=== PATIENT | female | born 1985 | race Caucasian/White ===

== ENCOUNTER 2022-01-06 21:22 | Inpatient (IN) | payer BC, SELFPAY ==
--- NOTE | ~2022-01-06 | CT_ITS ---
EXAMINATION: CT ABDOMEN AND PELVIS WITH CONTRAST CLINICAL INFORMATION: Abdominal pain COMPARISON: None TECHNIQUE: Multidetector volumetric images were obtained from the superior aspect of the liver through the pubic symphysis following administration 75 mL of Omnipaque 300 intravenous contrast. Sagittal and coronal reformatted images were obtained on the technologist's workstation. Oral contrast: No This CT examination was performed using dose optimization techniques as appropriate, variously including the following: *Automated exposure control *Adjustment of mA and/or kV according to patient size (this includes techniques or standardized protocols for targeted exams where dose is matched to indication/reason for exam; i.e. extremities or head) *Use of iterative reconstruction technique DLP: 626 mGy-cm FINDINGS: LUNG BASES: The visualized lung bases are unremarkable. LIVER, GALLBLADDER, AND BILIARY TREE: The liver is normal in size, shape and contour. Mild hepatic steatosis. No focal hepatic lesion or biliary ductal dilatation is present. Gallbladder unremarkable. PANCREAS: Marked peripancreatic fat stranding present with coalescent fluid extending into the lesser sac, left pararenal space, and to lesser extent the right anterior pararenal space, inferiorly through the retroperitoneum. There is interstitial edema evident within the pancreatic interstices / fatty interdigitations, however the pancreatic parenchyma itself is homogeneous in attenuation. No evidence of pancreatic necrosis at this time, or acute necrotic collection. SPLEEN: Unremarkable. ADRENAL GLANDS: Unremarkable. KIDNEYS AND URETERS: The kidneys are normal in size, shape, and attenuation. No hydronephrosis, hydroureter, or calculi seen. No perinephric stranding. BLADDER: Unremarkable. GASTROINTESTINAL TRACT: Small sliding-type hiatal hernia. The small and large bowel are unremarkable. The appendix is unremarkable. ABDOMINAL WALL: No significant hernia is appreciated. LYMPH NODES: Normal. VASCULAR: Aorta is mildly atherosclerotic but normal caliber. Patent vascular structures. PELVIC VISCERA: IUD present within the uterus. Ovaries unremarkable. OSSEOUS STRUCTURES: No acute or suspicious osseous abnormalities. CT/CT abdomen pelvis w con IMPRESSION: * Acute interstitial edematous pancreatitis with peripancreatic fluid collections as described. * No evidence of pancreatic necrosis or acute necrotic collection at this time, however such imaging findings take at least 72 hours to develop after the onset of symptoms. * Hepatic steatosis.
[2022-01-06] MEDS: Ondansetron ODT 4 MG TAB.RAPDIS SUBLINGUAL (21:52)
[2022-01-06 21:53] VITALS: BP 149/86; PULSE 61; RESP 18; TEMP 36.5; O2SAT 99; BMI 25.8
[2022-01-06 21:56] LABS: Basophils Percent Auto 0.2 % (0-2); Hemoglobin 15.8 g/dl (12.0-16.0); Imm Gran Abs Auto 0.06 X10*3/uL (0.00-0.03); Imm Gran Pct Auto 0.4 % (0.0-0.4); Lymphocytes Absolute Auto 0.6 X10*3/uL (1.2-4.9); MANUAL DIFF FLAG SCAN; Mean Corpuscular HGB Conc 34.3 g/dl (31.0-35.0); Mean Corpuscular Hemoglobin 31.9 pg (27.0-33.0); Mean Corpuscular Volume 92.7 fL (80.0-98.0); Monocytes Absolute Auto 0.6 X10*3/uL (0.1-1.2); Monocytes Percent Auto 3.7 % (2-11); Neutrophils Absolute Auto 14.4 x10*3/uL (2.0-8.3); Neutrophils Percent Auto 91.7 % (45-73); Platelet Count 189 X10*3/uL (160-400); Red Blood Count 4.96 X10*6/uL (4.20-5.50); Red Cell Distribution Width 11.9 % (11.0-16.0); SCAN SMEAR FLAG 1; White Blood Count 15.6 X10*3/uL (4.8-10.8)
[2022-01-06 22:11] LABS: Alanine Aminotransferase 78 U/L (0-31); Albumin Level 4.6 g/dL (3.5-5.0); Alkaline Phosphatase 65 U/L (39-117); Anion Gap 19 (12-20); Aspartate Amino Transferase 96 U/L (5-31); Bilirubin Total 1.5 mg/dL (0.0-1.0); Blood Urea Nitrogen 13 mg/dL (9-16); Calcium 9.6 mg/dL (8.4-10.2); Carbon Dioxide 18 mmol/L (22-29); Chloride 104 mmol/L (96-108); Creatinine Clr Calc Pharmacy 94.9; Estimated Glomerular Filt Rate > 60; Glucose Random 157 mg/dL (60-115); Potassium 4.3 mmol/L (3.3-5.1); Sodium 137 mmol/L (135-145)
[2022-01-06 22:14] LABS: SLIDE REVIEW VERIFIED
--- NOTE | 2022-01-06 23:30 | ED_ITS ---
HPI - Abdominal Pain General Chief Complaint: Abdominal Pain Stated Complaint: Stomach Pain Time Seen by Provider: 01/06/22 23:18 Source: patient Mode of arrival: ambulatory Limitations: no limitations History of Present Illness HPI narrative: 36-year-old female presents with several days of severe abdominal pain. States the abdominal pain starts at the umbilical area and shoots out through her back. She has not had any prior abdominal surgeries. States that she has been drinking more alcohol than normal. She is in the [employer]. MD elicited complaint: abdominal pain Pertinent past history: constipation Onset (ago): day(s) (3) Pain Consistency: constant Location: diffuse Severity: severe Pain scale (0-10): 10 Quality: stabbing and aching Radiation: back Migration to: no migration Exacerbating factors: eating and movement Relieving factors: nothing Associated symptoms: nausea, chills and constipation Treatments prior to arrival: NSAIDs Related Data Allergies Allergy/AdvReac Type Severity Reaction Status Date / Time No Known Allergies Allergy Verified 01/06/22 23:25 Review of Systems Review of Systems Constitutional: No Weight loss, No Fever, positive Chills, No Night Sweats, No Fatigue, No Malaise ENT/Mouth: No Hearing loss, No Ear Pain, No Nasal Congestion, No Sinus Pain, No Hoarseness, No sore throat, No Rhinorrhea, No Swallowing Difficulty Eyes: No Eye Pain, No Swelling, No Redness, No Foreign Body, No Discharge, No Vision Changes Cardiovascular: No Chest Pain, No SOB, No Dyspnea on Exertion, No Orthopnea, No Edema, No Palpitations Respiratory: No Cough, No Sputum, No Wheezing, No Smoke Exposure, No Dyspnea Gastrointestinal: Positive Nausea, no Vomiting, positive Diarrhea, positive abdominal Pain, No Hematochezia, No Melena Genitourinary: no irregular bleeding, No Dysuria, No Urinary Frequency, No H ematuria, No Urinary Incontinence, No Urgency, No Flank Pain, No Urinary Flow Changes, No Hesitancy Musculoskeletal: No joint pain, No Myalgias, No Joint Swelling Skin: No Skin Lesions, No rash Neuro: No Weakness, No Numbness, No Paresthesias, No Loss of Consciousness, No Dizziness, No Headache Psych: No Anxiety/Panic, No Depression, No SI/HI/AH/VH, No Social Issues Heme/Lymph: No Bruising, No Bleeding,No Lymphadenopathy Endocrine: No Polyuria, No Polydipsia, No Temperature Intolerance Yes all other systems are reviewed and are negative [facility] Past Medical History Attestation statement: The following information was validated with the patient. Source: old records reviewed Social History Social History Alcohol intake: current Alcohol intake frequency: 0-2 drinks per day Alcohol type: wine Patient Tobacco Use Status: Current everyday Tobacco user Smoked in Last 30 Days: Yes Use of substances other than those prescribed or required for medical reasons: No Advance Directives: No Advance Directives Information Provided: No Patient : No Physical Exam ED Vital Signs: Vital Signs - 24 hr 01/06/22 21:53 01/06/22 23:49 01/06/22 23:55 Temperature 97.7 F 98.6 F Pulse Rate 61 61 Respiratory Rate 18 20 20 Blood Pressure 149/86 H 165/67 H Pulse Oximetry 99 98 Oxygen Delivery Method Room Air Room Air 01/07/22 00:16 01/07/22 00:32 01/07/22 00:52 Temperature Pulse Rate 59 Respiratory Rate 18 14 Blood Pressure 145/91 H 155/91 H Pulse Oximetry Oxygen Delivery Method BMI result Body Mass Index 25.8 Appearance: Alert. Oriented X3. Moderate distress. Eyes: Pupils equal, round and reactive to light. Sclera nonicteric. ENT: Pharynx normal. Dry mucous membranes. Neck: Normal inspection. Neck supple. CVS: Normal heart rate and rhythm. Pulses normal. Respiratory: No respiratory distress. Breath sounds normal. Abdomen: Soft and positive McBurney, left upper quadrant abdominal pain. Distended. No rigidity. Skin: Skin warm and dry. Normal skin color. Normal skin turgor. Extremities: No lower extremity edema. Moves all extremities does resistance. Neuro: No motor deficit. No sensory deficit. Cranial nerves 2-12 intact. Course Course Course Narrative: 36-year-old female presents with 3 days of severe shooting abdominal pain, distention, inability to have a bowel movement. States that she cannot sit still, has had chills. She does report eating abnormally fatty foods and drinking more alcohol than normal. She is in the [employer] and was relocated to [place] from [place]. White count is elevated at 15.6. Patient does not report any prior abdominal surgeries. Abdominal exam diffusely tender, positive McBurney, left upper quadrant abdominal tenderness. Will order CT scan of abdomen pelvis with contrast. This [employer] started 20 gauge ID to right forearm. No complications. First attempt. Patient tolerated procedure well. 00:12 lipase elevated at 5000. Added on for LDH. Order for Dilaudid 1 mg. 2 L of fluid infusing. Order for 2nd IV start. 01:16 patient states to have 5/10 pain, order for 1 mg of Dilaudid IV and 3 L of normal saline. Discussion with hospitalist, plan of care is to admit for acute pancreatitis. CT scan is still pending. If CT scan indicates acute abdomen, surgery will be involved. 01:35 CT scan negative for acute abdomen requiring surgical intervention. Does indicate pancreatitis with stranding and free fluid. Hospitalist updated. Consultations Consultation #1: estuardo Time: 01:17 Consultation #2: Estuardo Time: 01:36 MDM - Abdominal Pain Differential Diagnosis Differential diagnosis: Likely abdominal pain, acute appendicitis, calculus of kidney, constipation, diverticulitis, pancreatitis, peptic ulcer disease and small bowel obstruction Medical Records Attestation: I reviewed the patient's medical records. Lab Data Attestation: I reviewed the patient's lab results. Result diagrams: 01/06/22 21:50 01/06/22 21:50 Labs: Lab Results 01/06/22 01/06/22 01/06/22 Range/Units 21:50 21:50 21:50 WBC 15.6 H (4.8-10.8) X10*3/uL RBC 4.96 (4.20-5.50) X10*6/uL Hgb 15.8 (12.0-16.0) g/dl Hct 46.0 (37.0-47.0) % MCV 92.7 (80.0-98.0) fL MCH 31.9 (27.0-33.0) pg MCHC 34.3 (31.0-35.0) g/dl RDW 11.9 (11.0-16.0) % Plt Count 189 (160-400) X10*3/uL MPV 9.0 L (9.4-12.3) fL Immature Gran % (Auto) 0.4 (0.0-0.4) % Neut % (Auto) 91.7 H (45-73) % Lymph % (Auto) 4.0 L (20-40) % [place] % (Auto) 3.7 (2-11) % Eos % (Auto) 0.0 (0-4) % Baso % (Auto) 0.2 (0-2) % Lymph # (Auto) 0.6 L (1.2-4.9) X10*3/uL [place] # (Auto) 0.6 (0.1-1.2) X10*3/uL Eos # (Auto) 0.0 (0.0-0.4) X10*3/uL Baso # (Auto) 0.0 (0.0-0.2) X10*3/uL Abs Immat Gran (auto) 0.06 H (0.00-0.03) X10*3/uL Absolute Neuts (auto) 14.4 H (2.0-8.3) x10*3/uL Absolute Nucleated RBC 0.000 (0.0-0.012) X10*3/uL Nucleated RBC % (auto) 0.0 (0.0-0.2) /100WBC Smear Tech's Comments VERIFIED Sodium 137 (135-145) mmol/L Potassium 4.3 (3.3-5.1) mmol/L Chloride 104 (96-108) mmol/L Carbon Dioxide 18 L (22-29) mmol/L Anion Gap 19 (12-20) BUN 13 (9-16) mg/dL Creatinine 0.84 (0.5-1.4) mg/dL Estim Creat Clear Calc 94.9 Estimated GFR > 60 Random Glucose 157 H (60-115) mg/dL Calcium 9.6 (8.4-10.2) mg/dL Total Bilirubin 1.5 H (0.0-1.0) mg/dL AST 96 H (5-31) U/L ALT 78 H (0-31) U/L Alkaline Phosphatase 65 (39-117) U/L Lactate Dehydrogenase 212 (122-220) U/L Troponin I High Sens < 3.5 (<3.5-17.0) ng/L Total Protein 8.0 (6.5-8.0) g/dL Albumin 4.6 (3.5-5.0) g/dL Lipase 5088 H (8-78) U/L Beta HCG, Quant < 2 mIU/mL Imaging Data CT abdomen pelvis with contrast: Attestation: I personally reviewed and interpreted this imaging study as follows: Radiologist's impression: FINDINGS: LUNG BASES: The visualized lung bases are unremarkable.? LIVER, GALLBLADDER, AND BILIARY TREE: The liver is normal in size, shape and contour. Mild hepatic steatosis. No focal hepatic lesion or biliary ductal dilatation is present. Gallbladder unremarkable.? PANCREAS: Marked peripancreatic fat stranding present with coalescent fluid extending into the lesser sac, left pararenal space, and to lesser extent the right anterior pararenal space, inferiorly through the retroperitoneum. There is interstitial edema evident within the pancreatic interstices / fatty interdigitations, however the pancreatic parenchyma itself is homogeneous in attenuation. No evidence of pancreatic necrosis at this time, or acute necrotic collection. SPLEEN: Unremarkable.? ADRENAL GLANDS: Unremarkable.? KIDNEYS AND URETERS: The kidneys are normal in size, shape, and attenuation. No hydronephrosis, hydroureter, or calculi seen. No perinephric stranding. ? BLADDER: Unremarkable.? GASTROINTESTINAL TRACT: Small sliding-type hiatal hernia. The small and large bowel are unremarkable. The appendix is unremarkable.? ABDOMINAL WALL: No significant hernia is appreciated.? LYMPH NODES: Normal. VASCULAR: Aorta is mildly atherosclerotic but normal caliber. Patent vascular structures. PELVIC VISCERA: IUD present within the uterus. Ovaries unremarkable.? OSSEOUS STRUCTURES: No acute or suspicious osseous abnormalities.? CT/CT abdomen pelvis w con IMPRESSION: *? Acute interstitial edematous pancreatitis with peripancreatic fluid collections as described. *? No evidence of pancreatic necrosis or acute necrotic collection at this time, however such imaging findings take at least 72 hours to develop after the onset of symptoms.? *? Hepatic steatosis. ECG Data Attestation: I personally reviewed and interpreted this ECG as follows: ECG interpretation date: 01/07/22 ECG interpretation time: 00:08 Prior ECG tracings: not available for review Interpretation: Ventricular rate 66, NY 106, QRS 88, QT 430, QTC 450, sinus rhythm with short [place]. No indication of ST elevation or depression. No indication of ischemia. Critical Care Time Critical Care Time Critical Care Time: Yes Total Critical Care Time: 45 Attestation: I have personally provided critical care time exclusive of time spent on separately billable procedures. Time includes review of laboratory data, radiology results, discussion with consultants, and monitoring for potential decompensation. Interventions were performed as documented.
[2022-01-06 23:49] VITALS: BP 165/67; PULSE 61; RESP 20; TEMP 37; O2SAT 98
[2022-01-06] MEDS: 0.9 % Sodium Chloride 1,000 ML 999 ML IVCONT (23:52)
[2022-01-06 23:55] VITALS: RESP 20
[2022-01-06] MEDS: Morphine Sulfate 4 MG/ML CARTRIDGE IVPUSH (23:55)
[2022-01-06 23:56] LABS: Lipase 5088 U/L (8-78)
[2022-01-07] VITALS (18 sets, daily range): BP systolic 136–170; BP diastolic 60–103; PULSE 59–84; RESP 14–20; TEMP 36.4–37.1; O2SAT 95–96
[2022-01-07] MEDS: ondansetron HCL 4 MG/2 ML VIAL IVPUSH
--- NOTE | 2022-01-07 00:07 | ECG_ITS ---
Test Reason : ABD PAIN Blood Pressure : / mmHG Vent. Rate : 066 BPM Atrial Rate : 066 BPM P-R Int : 106 ms QRS Dur : 088 ms QT Int : 430 ms P-R-T Axes : 042 081 070 degrees QTc Int : 450 ms Sinus rhythm with short OR Otherwise normal ECG No significant changes when compared with the previous EKG of 14 dec 2008 Referred By: Daysi Negron Electronically Signed By:QUYEN ONEIL
[2022-01-07 00:09] LABS: HCG Quantitative < 2 mIU/mL
[2022-01-07] MEDS: HYDROmorphone HCl 1 MG/ML SYRINGE IVPUSH (00:16)
[2022-01-07] MEDS: 0.9 % Sodium Chloride 1,000 ML 999 ML IVCONT ×2 (00:21→02:23)
--- NOTE | 2022-01-07 00:31 | PC.NURSE ---
20g IV inserted in Left AC. Fluids running. Pt tolerated well.
[2022-01-07 00:41] LABS: Lactate Dehydrogenase 212 U/L (122-220)
[2022-01-07 00:50] LABS: Troponin-I High Sensitivity < 3.5 ng/L (<3.5-17.0)
[2022-01-07] MEDS: HYDROmorphone HCl 0.5 MG/0.5 ML SYRINGE IVPUSH ×4 (02:18→18:36)
--- NOTE | 2022-01-07 04:29 | PM.IMHP ---
History of Present Illness Date of Service: 01/07/22 Chief Complaint: Abdominal pain 36-year-old female with a past medical history of GERD, alcohol abuse presented to the hospital with a chief complaint of abdominal pain. Patient reports that for the past 1 day she has been having abdominal pain associated nausea and vomiting. Had multiple episodes of projectile vomiting. Denies any blood in the vomitus. Patient reports that over the past few days she has been drinking alcohol; mentions that she is drinking of alcohol as she was on vacation. And usually does not drink much of alcohol. Denies any other illicit drug use. Denies any chest pain or palpitations. Denies any diarrhea. Reports her abdominal pain is 10/10 in intensity, located in the epigastrium; Review of all other systems is negative except mentioned above ER course: Per ER team patient has diffuse abdominal tenderness; CT scan showed acute interstitial pancreatitis. Lipase was elevated to 5000; also noted mild transaminitis. Given pain medications, IV fluids. Admitted to the hospital for further management. PMFSH Pertinent family history: Denies any significant family history; Mentions her sister had pancreatitis Social History Alcohol intake: current Alcohol intake frequency: 0-2 drinks per day Alcohol type: wine Patient Tobacco Use Status: Current everyday Tobacco user Smoked in Last 30 Days: Yes Use of substances other than those prescribed or required for medical reasons: No Advance Directives: No Advance Directives Information Provided: No Patient : No Meds Allergies Allergy/AdvReac Type Severity Reaction Status Date / Time No Known Allergies Allergy Verified 01/06/22 23:25 Active Medications: Current Medications Enoxaparin Sodium (Enoxaparin Sodium 40 Mg/0.4 Ml Syringe) 40 mg SUBCUT Q24H DONNY Famotidine (Famotidine/Pf 20 Mg/2 Ml Vial) 20 mg IVPUSH BID DONNY Folic Acid (Folic Acid 1 Mg Tablet) 1 mg PO DAILY DONNY Stop: 01/10/22 08:59 Hydromorphone HCl (Hydromorphone Hcl 1 Mg/Ml Syringe) 0.5 mg IVPUSH Q4H PRN; Protocol PRN Reason: Pain, Severe (Pain Scale 7-10) Dextrose/Sodium Chloride (D5ns) 1,000 mls @ 100 mls/hr IVCONT .Q10H DONNY Lorazepam (Lorazepam 1 Mg Tablet) 1 mg PO Q4H PRN PRN Reason: Breakthrough alcohol withdrawa Stop: 01/11/22 04:25 Melatonin (Melatonin 3 Mg Tablet) 6 mg PO BEDTIME PRN PRN Reason: Insomnia Multivitamins/Vitamin C (Multivitamin Tablet) 1 tab PO DAILY DONNY Stop: 01/10/22 08:59 Pharmacy Consult (Consult Rx Perform Med Rec) 1 each MISCELLANE ONCE STA Stop: 01/07/22 00:26 Senna (Sennosides 8.6 Mg Tablet) 17.2 mg PO BEDTIME PRN PRN Reason: Constipation Sodium Chloride (0.9 % Sodium Chloride Flush 3 Ml Syringe) 3 ml IVFLUSH QSHIFT DONNY Thiamine HCl (Thiamine Hcl 100 Mg Tablet) 100 mg PO DAILY DONNY Stop: 01/10/22 08:59 Physical Exam Vital Signs and Narrative: Vital Signs: Last Vital Signs Temp 98.6 F 01/06/22 23:49 Pulse 70 01/07/22 04:06 Resp 18 01/07/22 04:06 BP 163/88 H 01/07/22 04:06 Pulse Ox 96 01/07/22 04:06 O2 Del Method 01/07/22 04:06 BMI result Body Mass Index 25.8 Gen: Appears be in no acute distress HEENT: NCAT, Moist mucosa. Pulmonary: Vesicular breath sounds, fair air entry CVS: Normal S1-S2 Abdomen: BS+, Soft, tender in the epigastrium radiating down the umbilicus; no guarding no rigidity. Extremities: Warm well perfused Neuro: Alert and awake. Results Labs CBC and Chem 7: 01/06/22 21:50 01/06/22 21:50 Labs: Laboratory Results - last 24 hr 01/06/22 01/06/22 01/06/22 21:50 21:50 21:50 MCV 92.7 MCH 31.9 MCHC 34.3 RDW 11.9 Plt Count 189 MPV 9.0 L Immature Gran % (Auto) 0.4 Neut % (Auto) 91.7 H Lymph % (Auto) 4.0 L [place] % (Auto) 3.7 Eos % (Auto) 0.0 Baso % (Auto) 0.2 Lymph # (Auto) 0.6 L [place] # (Auto) 0.6 Eos # (Auto) 0.0 Baso # (Auto) 0.0 Abs Immat Gran (auto) 0.06 H Absolute Neuts (auto) 14.4 H Absolute Nucleated RBC 0.000 Nucleated RBC % (auto) 0.0 Smear Tech's Comments VERIFIED Anion Gap 19 Estim Creat Clear Calc 94.9 Estimated GFR > 60 Random Glucose 157 H Calcium 9.6 Total Bilirubin 1.5 H AST 96 H ALT 78 H Alkaline Phosphatase 65 Lactate Dehydrogenase 212 Troponin I High Sens < 3.5 Total Protein 8.0 Albumin 4.6 Lipase 5088 H Beta HCG, Quant < 2 Imaging Radiologist's Impressions: Impressions Abdomen/Pelvis CT 01/07/22 00:45 IMPRESSION: * Acute interstitial edematous pancreatitis with peripancreatic fluid collections as described. * No evidence of pancreatic necrosis or acute necrotic collection at this time, however such imaging findings take at least 72 hours to develop after the onset of symptoms. * Hepatic steatosis. Assessment and Plan (1) Pancreatitis: Status: Acute Plan 36-year-old female with a past medical history of GERD, alcohol abuse presented to the hospital with a chief complaint of abdominal pain./nausea/vomiting Noted to have acute pancreatitis. Admitted for further management. Acute pancreatitis: CT scan showed ?Acute interstitial edematous pancreatitis with peripancreatic fluid collections. No evidence of necrosis. NPO IV fluids Pain control General surgery consult and gastroenterology consult Alcohol abuse: Patient denies being a heavy drinker. Currently drinking because she has an medication. Monitor on CIWA. Hypertension: Currently blood pressure is elevated likely in the setting of pain. Will control pain. Monitor vitals. DVT prophylaxis: Lovenox Code status: Full code Quality Stroke Does the patient have a stroke diagnosis?: No VTE Prior VTE?: No VTE Risk Level:: Medical - moderate - high VTE Device Contraindication: Treatment Not Indicated VTE Drug Contraindication: N/A - Med Ordered
[2022-01-07] MEDS: Dextrose 5 % and 0.9 % NaCl 1,000 ML 100 ML IVCONT (05:02)
[2022-01-07 05:15] LABS: Appearance Urine CLEAR; Color Urine YELLOW; Glucose Urine UA NEG (NEG); Leukocyte Esterase Urine NEG (NEG); Nitrite Urine NEG (NEG); UACC Culture Trigger NO; Urine Blood TRACE (NEG); Urine Ketones 15 MG/DL (NEG); Urine Protein NEG (NEG-TRACE)
[2022-01-07 05:22] LABS: WBC Urine 0-2 /HPF (0-4)
[2022-01-07 05:23] LABS: Bacteria Urine 1+ /LPF; Mucus Urine 1+ /LPF; RBC Urine 0-2 /HPF (0); Squamous Epithelial Cell Urine 1+ /LPF
[2022-01-07 05:31] LABS: IDNOW Serial# 08D9AD1C
[2022-01-07 05:32] LABS: COVID-19 Test Negative (Negative)
[2022-01-07] MEDS: Enoxaparin Sodium 40 MG/0.4 ML SYRINGE SUBCUT (07:03)
[2022-01-07 07:04] LABS: Basophils Percent Auto 0.1 % (0-2); Hematocrit 42.8 % (37.0-47.0); Hemoglobin 14.3 g/dl (12.0-16.0); Imm Gran Abs Auto 0.07 X10*3/uL (0.00-0.03); Imm Gran Pct Auto 0.5 % (0.0-0.4); Lymphocytes Absolute Auto 0.6 X10*3/uL (1.2-4.9); Lymphocytes Percent Auto 4.1 % (20-40); MANUAL DIFF FLAG SCAN; Mean Corpuscular HGB Conc 33.4 g/dl (31.0-35.0); Mean Corpuscular Hemoglobin 31.5 pg (27.0-33.0); Mean Corpuscular Volume 94.3 fL (80.0-98.0); Mean Platelet Volume 9.3 fL (9.4-12.3); Monocytes Absolute Auto 0.7 X10*3/uL (0.1-1.2); Neutrophils Absolute Auto 12.7 x10*3/uL (2.0-8.3); Neutrophils Percent Auto 90.3 % (45-73); Platelet Count 162 X10*3/uL (160-400); Red Blood Count 4.54 X10*6/uL (4.20-5.50); Red Cell Distribution Width 12.2 % (11.0-16.0); SCAN SMEAR FLAG 1; White Blood Count 14.1 X10*3/uL (4.8-10.8)
[2022-01-07 07:28] LABS: Alanine Aminotransferase 52 U/L (0-31); Albumin Level 3.9 g/dL (3.5-5.0); Alkaline Phosphatase 56 U/L (39-117); Anion Gap 13 (12-20); Aspartate Amino Transferase 57 U/L (5-31); Bilirubin Direct 0.6 mg/dL (0.0-0.5); Bilirubin Total 1.6 mg/dL (0.0-1.0); Blood Urea Nitrogen 11 mg/dL (9-16); Carbon Dioxide 19 mmol/L (22-29); Chloride 109 mmol/L (96-108); Creatinine Clr Calc Pharmacy 106.3; Estimated Glomerular Filt Rate > 60; Glucose Random 150 mg/dL (60-115); Sodium 137 mmol/L (135-145); Total Protein 6.9 g/dL (6.5-8.0)
[2022-01-07 07:57] LABS: SLIDE REVIEW VERIFIED
[2022-01-07 08:04] LABS: Lipase 3444 U/L (8-78)
--- NOTE | 2022-01-07 08:05 | PHA.MEDREC ---
Pharmacy Consult ? Medication Reconciliation Pharmacy has completed the medication reconciliation.
--- NOTE | 2022-01-07 08:11 | P.CNGI_ITS ---
History of Present Illness Data of Consult Service Date: 01/07/22 Requesting physician: Greg Marte Primary Care Provider: Unknown Physician HPI Reason for consult: pancreatitis 36-year-old female with a past medical history of GERD, alcohol abuse who I am seeing for assessment for pancreatitis. Presents with one d hx of severe epigastric pain 10/10 in severity, radiating into the back with nausea and non bloody emesis. Apin worse with movement, no releiving factor. Never had this pain before. pain reduced with pain medication, managing to sip fluids, has no appetite. Denies any chest pain or palpitations.? Denies any diarrhea now, but had some at onset of pain, no constipation, melena or rectal bleeding SHe does drink one bottle of wine every night for years, last 1-2 weeks she has been drinking 2 bottles as she is vacationing in [place] (lives in [place] with sister and niece) Labs: Lipase was elevated to 5000; mild transaminitis. imaging: CT scan showed acute interstitial pancreatitis.? Review of Systems Review of Systems: Constitutional: No Weight loss, No Fever, positive Chills, No Night Sweats, No Fatigue, No Malaise ENT/Mouth: No Hearing loss, No Ear Pain, No Nasal Congestion, No Sinus Pain, No Hoarseness, No sore throat, No Rhinorrhea, No Swallowing Difficulty Eyes: No Eye Pain, No Swelling, No Redness, No Foreign Body, No Discharge, No Vision Changes Cardiovascular: No Chest Pain, No SOB, No Dyspnea on Exertion, No Orthopnea, No Edema, No Palpitations Respiratory: No Cough, No Sputum, No Wheezing, No Smoke Exposure, No Dyspnea Gastrointestinal: Positive Nausea, no Vomiting, positive Diarrhea, positive abdominal Pain, No Hematochezia, No Melena Genitourinary: no irregular bleeding, No Dysuria, No Urinary Frequency, No Hematuria, No Urinary Incontinence, No Urgency, No Flank Pain, No Urinary Flow Changes, No Hesitancy Musculoskeletal: No joint pain, No Myalgias, No Joint Swelling Skin: No Skin Lesions, No rash Neuro: No Weakness, No Numbness, No Paresthesias, No Loss of Consciousness, No Dizziness, No Headache Psych: No Anxiety/Panic, No Depression, No SI/HI/AH/VH, No Social Issues Heme/Lymph: No Bruising, No Bleeding,No Lymphadenopathy Endocrine: No Polyuria, No Polydipsia, No Temperature Intolerance [facility] Past Medical History Medical History (Updated 01/07/22 @ 14:34 by Nadia Neal MD) Alcohol dependence Family History Pertinent family history: Denies any significant family history; Mentions her sister had pancreatitis Social History Social History (Updated 01/07/22 @ 10:49 by Olu Luong MD) Alcohol intake: current Alcohol intake frequency: other Alcohol type: wine Patient Tobacco Use Status: Current everyday Tobacco user Smoked in Last 30 Days: Yes Use of substances other than those prescribed or required for medical reasons: No Advance Directives: No Advance Directives Information Provided: No Patient : No service: Yes Current occupational status: employed Meds Allergies Allergy/AdvReac Type Severity Reaction Status Date / Time No Known Allergies Allergy Verified 01/06/22 23:25 Active Medications: Current Medications Enoxaparin Sodium (Enoxaparin Sodium 40 Mg/0.4 Ml Syringe) 40 mg SUBCUT Q24H [facility] Last Admin: 01/07/22 07:03 Dose: 40 mg Famotidine (Famotidine/Pf 20 Mg/2 Ml Vial) 20 mg IVPUSH BID [facility] Folic Acid (Folic Acid 1 Mg Tablet) 1 mg PO DAILY [facility] Stop: 01/10/22 08:59 Hydromorphone HCl (Hydromorphone Hcl 1 Mg/Ml Syringe) 0.5 mg IVPUSH Q4H PRN; Protocol PRN Reason: Pain, Severe (Pain Scale 7-10) Dextrose/Sodium Chloride (D5ns) 1,000 mls @ 100 mls/hr IVCONT .Q10H [facility] Last Admin: 01/07/22 05:02 Dose: 100 mls/hr Lorazepam (Lorazepam 1 Mg Tablet) 1 mg PO Q4H PRN PRN Reason: Breakthrough alcohol withdrawa Stop: 01/11/22 04:25 Melatonin (Melatonin 3 Mg Tablet) 6 mg PO BEDTIME PRN PRN Reason: Insomnia Multivitamins/Vitamin C (Multivitamin Tablet) 1 tab PO DAILY [facility] Stop: 01/10/22 08:59 Senna (Sennosides 8.6 Mg Tablet) 17.2 mg PO BEDTIME PRN PRN Reason: Constipation Sodium Chloride (0.9 % Sodium Chloride Flush 3 Ml Syringe) 3 ml IVFLUSH QSHIFT [facility] Thiamine HCl (Thiamine Hcl 100 Mg Tablet) 100 mg PO DAILY [facility] Stop: 01/10/22 08:59 Home Medications Medication Instructions Recorded Confirmed Last Taken Type cetirizine 10 mg tablet (Zyrtec) 10 mg PO DAILY 01/07/22 01/07/22 01/06/22 History omeprazole 10 mg capsule,delayed 10 mg PO DAILY 01/07/22 01/07/22 01/06/22 History release Physical Exam Vital Signs: Vital Signs: Last Vital Signs Temp 98.6 F 01/06/22 23:49 Pulse 63 01/07/22 05:03 Resp 16 01/07/22 05:03 BP 167/103 H 01/07/22 05:03 Pulse Ox 95 01/07/22 04:52 O2 Del Method 01/07/22 04:52 BMI result Body Mass Index 25.8 EXAM: GENERAL: The patient is well developed and nontoxic. VITAL SIGNS:see workflow HEENT: Nonicteric sclerae, PERRLA, EOMI. Oropharynx clear. Moist mucous membranes. Conjunctivae appear well perfused. No thyroid mass. CHEST: Chest wall is nontender. HEART: Regular rate and rhythm without murmurs. LUNGS: Clear to auscultation bilaterally. ABDOMEN: Soft, positive bowel sounds, tender epigastrium, no organomegaly.no flank tenderness SKIN: No rash, no excessive bruising, petechiae, or purpura. NEUROLOGIC: Cranial nerves II-XII intact without motor/sensory deficit. Psych-nml affect MS: nml ROM Results Labs CBC & Chem 7: 01/07/22 06:29 01/07/22 06:29 Labs: Short CBC 01/06/22 01/07/22 Range/Units 21:50 06:29 WBC 15.6 H 14.1 H (4.8-10.8) X10*3/uL Hgb 15.8 14.3 (12.0-16.0) g/dl Hct 46.0 42.8 (37.0-47.0) % Plt Count 189 162 (160-400) X10*3/uL BMP 01/06/22 01/07/22 21:50 06:29 Sodium 137 137 Potassium 4.3 4.0 Chloride 104 109 H Carbon Dioxide 18 L 19 L BUN 13 11 Creatinine 0.84 0.75 Calcium 9.6 8.0 L D Liver Function 01/06/22 01/07/22 Range/Units 21:50 06:29 Total Bilirubin 1.5 H 1.6 H (0.0-1.0) mg/dL Direct Bilirubin 0.6 H (0.0-0.5) mg/dL AST 96 H 57 H (5-31) U/L ALT 78 H 52 H (0-31) U/L Alkaline Phosphatase 65 56 (39-117) U/L Albumin 4.6 3.9 (3.5-5.0) g/dL Urine 01/07/22 Range/Units 05:08 Urine Color YELLOW Urine Appearance CLEAR Urine pH 6.0 (5.0-8.0) Ur Specific [place] 1.020 (1.005-1.025) Urine Protein NEG (NEG-TRACE) MG/DL Urine Glucose (UA) NEG (NEG) MG/DL Imaging CT scan - abdomen: Attestation: I personally reviewed and interpreted this imaging study as f ollows: (peripancreatic fluid and stranding, edema) Assessment and Plan (1) Pancreatitis: Qualifiers: Chronicity: acute Pancreatitis type: alcohol induced Acute pancreatitis complication: no infection or necrosis Qualified Code(s): K85.20 - Alcohol induced acute pancreatitis without necrosis or infection Status: Acute Plan 1/ Acute interstitial pancreatitis, alcohol related, 2/ Alcohol abuse PLAN: 1/ Fluid resus with LR with 3-4 L of LR in the first 24 hrs then can taper down 2/ analgesia as doing 3/ PO diet as tolerated 4/ can use trental 400 mf TID, some evidence may help reduced severity of pancreatitis [facility]/ [facility] 6/ shoudl try to avoid smoking will reduce longer term risk of chronic pancreati tis, she wants to stop drinking alcohol -consider psych assessment Procedures Date of Service Date of Service: 01/07/22
--- NOTE | 2022-01-07 08:11 | PM.CNGS ---
History of Present Illness Consult details Consult date: 01/07/22 Requesting physician: Greg Marte Narrative: 36-year-old female patient presenting with a 1 day history of severe epigastric abdominal pain radiating into the back with associated nausea and projectile vomiting. She reports a recent history of heavy drinking mainly of wine while on vacation. She is currently in the and denies a history of prior episodes of similar pain. The pain started yesterday and increased in severity throughout the day. She reports fever and chills denies diarrhea or constipation. She subsequently presented to the emergency department and was noted to have an elevated WBC of 15.6,Total bilirubin of 1.6, direct bilirubin of 0.6 and lipase of 5088. Subsequent CT abdomen and pelvis revealed acute interstitial edematous pancreatitis with peripancreatic fluid collections extending into the lesser sac, left pararenal space, and to a lesser extent the right anterior pararenal space, inferiorly through the retroperitoneum. There is no evidence of pancreatic necrosis or acute necrotic collection. There is evidence of hepatic steatosis. The gallbladder was unremarkable. She is admitted to the hospitalist service for management of the acute pancreatitis. Review of Systems Review of Systems: Yes all other systems are reviewed and are negative Constitutional: Constitutional: Reports chills and Reports fever(s) Cardiovascular: Cardiovascular: Reports rapid heart rate Respiratory: Respiratory: Reports pain on inspiration and Reports pain with cough Gastrointestinal: Gastrointestinal: Reports abdominal pain, Reports bloating, Denies change in stool character, Denies diarrhea, Reports nausea and Reports vomiting Musculoskeletal: Musculoskeletal: Reports back pain Integumentary/Breasts: Skin/Breast: Denies change in pigmentation PMFSH Social History Social History Alcohol intake: current Alcohol intake frequency: 0-2 drinks per day Alcohol type: wine Patient Tobacco Use Status: Current everyday Tobacco user Smoked in Last 30 Days: Yes Use of substances other than those prescribed or required for medical reasons: No Advance Directives: No Advance Directives Information Provided: No Patient : No Meds Allergies Allergy/AdvReac Type Severity Reaction Status Date / Time No Known Allergies Allergy Verified 01/06/22 23:25 Active Medications: Current Medications Enoxaparin Sodium (Enoxaparin Sodium 40 Mg/0.4 Ml Syringe) 40 mg SUBCUT Q24H [facility] Last Admin: 01/07/22 07:03 Dose: 40 mg Famotidine (Famotidine/Pf 20 Mg/2 Ml Vial) 20 mg IVPUSH BID [facility]PL[facility] Folic Acid (Folic Acid 1 Mg Tablet) 1 mg PO DAILY [facility] Stop: 01/10/22 08:59 Hydromorphone HCl (Hydromorphone Hcl 1 Mg/Ml Syringe) 0.5 mg IVPUSH Q4H PRN; Protocol PRN Reason: Pain, Severe (Pain Scale 7-10) Dextrose/Sodium Chloride (D5ns) 1,000 mls @ 100 mls/hr IVCONT .Q10H [facility] Last Admin: 01/07/22 05:02 Dose: 100 mls/hr Lorazepam (Lorazepam 1 Mg Tablet) 1 mg PO Q4H PRN PRN Reason: Breakthrough alcohol withdrawa Stop: 01/11/22 04:25 Melatonin (Melatonin 3 Mg Tablet) 6 mg PO BEDTIME PRN PRN Reason: Insomnia Multivitamins/Vitamin C (Multivitamin Tablet) 1 tab PO DAILY [facility] Stop: 01/10/22 08:59 Senna (Sennosides 8.6 Mg Tablet) 17.2 mg PO BEDTIME PRN PRN Reason: Constipation Sodium Chloride (0.9 % Sodium Chloride Flush 3 Ml Syringe) 3 ml IVFLUSH QSHIFT [facility]PLACED [facility] Thiamine HCl (Thiamine Hcl 100 Mg Tablet) 100 mg PO DAILY [facility] Stop: 01/10/22 08:59 Home Medications Medication Instructions Recorded Confirmed Last Taken Type cetirizine 10 mg tablet (Zyrtec) 10 mg PO DAILY 01/07/22 01/07/22 01/06/22 History omeprazole 10 mg capsule,delayed 10 mg PO DAILY 01/07/22 01/07/22 01/06/22 History release Physical Exam Vital Signs: Vital Signs: Last Vital Signs Temp 98.6 F 01/06/22 23:49 Pulse 63 01/07/22 05:03 Resp 16 01/07/22 05:03 BP 167/103 H 01/07/22 05:03 Pulse Ox 95 01/07/22 04:52 O2 Del Method 01/07/22 04:52 BMI result Body Mass Index 25.8 Const: General: well developed, ill appearing and tired appearing Nutritional Appearance: well nourished Orientation/consciousness: patient oriented x3 Limitations: no limitations HEENT: Head: Yes normocephalic and Yes atraumatic Ears: hearing grossly normal bilaterally Eyes: Sclerae: sclerae normal EOM: EOMs intact bilaterally Resp: Effort & Inspection: normal respiratory effort, no audible wheezes, no cough and no respiratory distress Cardio: Rate: regular rate Rhythm: regular rhythm GI: Inspection: Yes normal to inspection Palpation (GI): Soft to palpation, Tenderness to palpation present (GI) in the epigastrum; not in the RUQ and Sandoval's sign negative, no guarding, not rigid and No hepatosplenomegaly present Percussion: Yes normal to percussion Auscultation: normal bowel sounds Rectal Exam - Female: deferred Skin: General skin exam: no rashes or lesions noted Neuro: General: patient oriented x3 Extrem: General: Yes no clubbing, cyanosis or edema Results Labs Result diagrams: 01/07/22 06:29 01/07/22 06:29 Labs: Abnormal lab results 01/06/22 01/06/22 01/07/22 Range/Units 21:50 21:50 06:29 WBC 15.6 H 14.1 H (4.8-10.8) X10*3/uL MPV 9.0 L 9.3 L (9.4-12.3) fL Immature Gran % (Auto) 0.5 H (0.0-0.4) % Neut % (Auto) 91.7 H 90.3 H (45-73) % Lymph % (Auto) 4.0 L 4.1 L (20-40) % Lymph # (Auto) 0.6 L 0.6 L (1.2-4.9) X10*3/uL Abs Immat Gran (auto) 0.06 H 0.07 H (0.00-0.03) X10*3/uL Absolute Neuts (auto) 14.4 H 12.7 H (2.0-8.3) x10*3/uL Chloride (96-108) mmol/L Carbon Dioxide 18 L (22-29) mmol/L Random Glucose 157 H (60-115) mg/dL Calcium (8.4-10.2) mg/dL Total Bilirubin 1.5 H (0.0-1.0) mg/dL Direct Bilirubin (0.0-0.5) mg/dL AST 96 H (5-31) U/L ALT 78 H (0-31) U/L Lipase 5088 H (8-78) U/L 01/07/22 Range/Units 06:29 WBC (4.8-10.8) X10*3/uL MPV (9.4-12.3) fL Immature Gran % (Auto) (0.0-0.4) % Neut % (Auto) (45-73) % Lymph % (Auto) (20-40) % Lymph # (Auto) (1.2-4.9) X10*3/uL Abs Immat Gran (auto) (0.00-0.03) X10*3/uL Absolute Neuts (auto) (2.0-8.3) x10*3/uL Chloride 109 H (96-108) mmol/L Carbon Dioxide 19 L (22-29) mmol/L Random Glucose 150 H (60-115) mg/dL Calcium 8.0 L D (8.4-10.2) mg/dL Total Bilirubin 1.6 H (0.0-1.0) mg/dL Direct Bilirubin 0.6 H (0.0-0.5) mg/dL AST 57 H (5-31) U/L ALT 52 H (0-31) U/L Lipase 3444 H (8-78) U/L Short CBC 01/06/22 01/07/22 Range/Units 21:50 06:29 WBC 15.6 H 14.1 H (4.8-10.8) X10*3/uL Hgb 15.8 14.3 (12.0-16.0) g/dl Hct 46.0 42.8 (37.0-47.0) % Plt Count 189 162 (160-400) X10*3/uL BMP 01/06/22 01/07/22 21:50 06:29 Sodium 137 137 Potassium 4.3 4.0 Chloride 104 109 H Carbon Dioxide 18 L 19 L BUN 13 11 Creatinine 0.84 0.75 Calcium 9.6 8.0 L D Liver Function 01/06/22 01/07/22 Range/Units 21:50 06:29 Total Bilirubin 1.5 H 1.6 H (0.0-1.0) mg/dL Direct Bilirubin 0.6 H (0.0-0.5) mg/dL AST 96 H 57 H (5-31) U/L ALT 78 H 52 H (0-31) U/L Alkaline Phosphatase 65 56 (39-117) U/L Albumin 4.6 3.9 (3.5-5.0) g/dL Urine 01/07/22 Range/Units 05:08 Urine Color YELLOW Urine Appearance CLEAR Urine pH 6.0 (5.0-8.0) Ur Specific [place] 1.020 (1.005-1.025) Urine Protein NEG (NEG-TRACE) MG/DL Urine Glucose (UA) NEG (NEG) MG/DL All other labs normal. Imaging Abdomen CT scan report/results: image reviewed CT scan - pelvis: image reviewed Additional studies: Assessment and Plan (1) Pancreatitis: Status: Acute Plan 36-year-old female patient presenting with a 1st episode of pancreatitis most likely alcohol induced. Patient has several peripancreatic fluid collections as noted above but no evidence of abscess or necrosis. Recommend supportive care and bowel rest, IV hydration, pain control. Surgical intervention not indicated at this time. Encouraged patient to avoid all alcohol. Patient expressed understanding and agrees with the plan. Procedures Date of Service Date of Service: 01/07/22
[2022-01-07 08:21] LABS: Cholesterol 175 mg/dL; HDL Cholesterol 56 mg/dL; LDL Cholesterol Calculated 109 mg/dl; Triglycerides 54 mg/dL
--- NOTE | 2022-01-07 08:36 | MHC.CM.PN ---
Female 36 DX Pancreatitis She lives with family. She is independent all functional mobility. DP home no services family will provide transportation. Patient states that she does note drink. She drank daily for the past week. A Care Team has been ordered.
[2022-01-07] MEDS: HYDROmorphone HCl 1 MG/ML SYRINGE 0.5 MG IVPUSH (08:58)
[2022-01-07] MEDS: Famotidine/PF 20 MG/2 ML VIAL IVPUSH ×2 (09:04→21:51)
[2022-01-07] MEDS: Folic Acid 1 MG TABLET PO (09:07)
[2022-01-07] MEDS: Thiamine HCL 100 MG TABLET PO (09:07)
[2022-01-07] MEDS: Multivitamin TABLET 1 TAB PO (09:07)
[2022-01-07] MEDS: 0.9 % Sodium Chloride Flush 3 ML SYRINGE IVFLUSH (10:04)
--- NOTE | 2022-01-07 10:53 | P.PNIM_ITS ---
Subjective Subjective Date of Service: 01/07/22 Interval History: cc: abd pain interval history:still with severe pain Cardiovascular Cardiovascular: Reports no additional cardiovascular complaints Respiratory Respiratory: Reports no additional respiratory complaints Physical Exam Vital Signs: Vital Signs: Last Vital Signs Temp 98.6 F 01/06/22 23:49 Pulse 74 01/07/22 10:00 Resp 18 01/07/22 10:00 BP 136/77 01/07/22 10:00 Pulse Ox 96 01/07/22 08:24 O2 Del Method 01/07/22 08:24 BMI result Body Mass Index 25.8 General: AO X 3, in pain HEENT: facial telangiectasias Resp: CTA bilateral, no accessory muscles used CVS: S1,S2,RRR GI: soft, tender, non distended Neuro: motor grossly intact, alert Psych: appropriate affect, appropriate insight Objective Data Active Medications Enoxaparin Sodium (Enoxaparin Sodium 40 Mg/0.4 Ml Syringe) 40 mg SUBCUT Q24H [facility] Last Admin: 01/07/22 07:03 Dose: 40 mg Documented By: SHONDA Famotidine (Famotidine/Pf 20 Mg/2 Ml Vial) 20 mg IVPUSH BID [facility] Last Admin: 01/07/22 09:04 Dose: 20 mg Documented By: ELLA Folic Acid (Folic Acid 1 Mg Tablet) 1 mg PO DAILY [facility] Stop: 01/10/22 08:59 Last Admin: 01/07/22 09:07 Dose: 1 mg Documented By: ELLA Hydromorphone HCl (Hydromorphone Hcl 1 Mg/Ml Syringe) 0.5 mg IVPUSH Q4H PRN; Protocol PRN Reason: Pain, Severe (Pain Scale 7-10) Last Admin: 01/07/22 08:58 Dose: 0.5 mg Documented By: ELLA Dextrose/Sodium Chloride (D5ns) 1,000 mls @ 100 mls/hr IVCONT .Q10H [facility] Last Admin: 01/07/22 05:02 Dose: 100 mls/hr Documented By: LOUIE Lorazepam (Lorazepam 1 Mg Tablet) 1 mg PO Q4H PRN PRN Reason: Breakthrough alcohol withdrawa Stop: 01/11/22 04:25 Melatonin (Melatonin 3 Mg Tablet) 6 mg PO BEDTIME PRN PRN Reason: Insomnia Multivitamins/Vitamin C (Multivitamin Tablet) 1 tab PO DAILY [facility] Stop: 01/10/22 08:59 Last Admin: 01/07/22 09:07 Dose: 1 tab Documented By: ELLA Senna (Sennosides 8.6 Mg Tablet) 17.2 mg PO BEDTIME PRN PRN Reason: Constipation Sodium Chloride (0.9 % Sodium Chloride Flush 3 Ml Syringe) 3 ml IVFLUSH QSHIFT [facility] Last Admin: 01/07/22 10:04 Dose: 3 ml Documented By: ELLA Thiamine HCl (Thiamine Hcl 100 Mg Tablet) 100 mg PO DAILY [facility] Stop: 01/10/22 08:59 Last Admin: 01/07/22 09:07 Dose: 100 mg Documented By: ELLA Labs CBC & Chem 7: 01/07/22 06:29 01/07/22 06:29 Labs: Laboratory Results - last 24 hr 01/06/22 01/06/22 01/06/22 21:50 21:50 21:50 MCV 92.7 MCH 31.9 MCHC 34.3 RDW 11.9 Plt Count 189 MPV 9.0 L Immature Gran % (Auto) 0.4 Neut % (Auto) 91.7 H Lymph % (Auto) 4.0 L [place] % (Auto) 3.7 Eos % (Auto) 0.0 Baso % (Auto) 0.2 Lymph # (Auto) 0.6 L [place] # (Auto) 0.6 Eos # (Auto) 0.0 Baso # (Auto) 0.0 Abs Immat Gran (auto) 0.06 H Absolute Neuts (auto) 14.4 H Absolute Nucleated RBC 0.000 Nucleated RBC % (auto) 0.0 Smear Tech's Comments VERIFIED Anion Gap 19 Estim Creat Clear Calc 94.9 Estimated GFR > 60 Random Glucose 157 H Calcium 9.6 Total Bilirubin 1.5 H Direct Bilirubin AST 96 H ALT 78 H Alkaline Phosphatase 65 Lactate Dehydrogenase 212 Troponin I High Sens < 3.5 Total Protein 8.0 Albumin 4.6 Triglycerides Cholesterol LDL Cholesterol, Calc HDL Cholesterol Lipase 5088 H Beta HCG, Quant < 2 Urine Color Urine Appearance Urine pH Ur Specific [place] Urine Protein Urine Glucose (UA) Urine Ketones Urine Blood Urine Nitrite Ur Leukocyte Esterase Urine RBC Urine WBC Ur Squamous Epith Cells Urine Bacteria Urine Mucus COVID-19 ([facility]) COVID-19 Clin Com 06/11/22 06/11/22 06/11/22 04:59 05:08 06:29 MCV 94.3 MCH 31.5 MCHC 33.4 RDW 12.2 Plt Count 162 MPV 9.3 L Immature Gran % (Auto) 0.5 H Neut % (Auto) 90.3 H Lymph % (Auto) 4.1 L [place] % (Auto) 5.0 Eos % (Auto) 0.0 Baso % (Auto) 0.1 Lymph # (Auto) 0.6 L [place] # (Auto) 0.7 Eos # (Auto) 0.0 Baso # (Auto) 0.0 Abs Immat Gran (auto) 0.07 H Absolute Neuts (auto) 12.7 H Absolute Nucleated RBC 0.000 Nucleated RBC % (auto) 0.0 Smear Tech's Comments VERIFIED Anion Gap Estim Creat Clear Calc Estimated GFR Random Glucose Calcium Total Bilirubin Direct Bilirubin AST ALT Alkaline Phosphatase Lactate Dehydrogenase Troponin I High Sens Total Protein Albumin Triglycerides Cholesterol LDL Cholesterol, Calc HDL Cholesterol Lipase Beta HCG, Quant Urine Color YELLOW Urine Appearance CLEAR Urine pH 6.0 Ur Specific [place] 1.020 Urine Protein NEG Urine Glucose (UA) NEG Urine Ketones 15 Urine Blood TRACE Urine Nitrite NEG Ur Leukocyte Esterase NEG Urine RBC 0-2 Urine WBC 0-2 Ur Squamous Epith Cells 1+ Urine Bacteria 1+ Urine Mucus 1+ COVID-19 ([facility]) Negative COVID-19 Clin Com See Note 01/07/22 06:29 MCV MCH MCHC RDW Plt Count MPV Immature Gran % (Auto) Neut % (Auto) Lymph % (Auto) [place] % (Auto) Eos % (Auto) Baso % (Auto) Lymph # (Auto) [place] # (Auto) Eos # (Auto) Baso # (Auto) Abs Immat Gran (auto) Absolute Neuts (auto) Absolute Nucleated RBC Nucleated RBC % (auto) Smear Tech's Comments Anion Gap 13 Estim Creat Clear Calc 106.3 Estimated GFR > 60 Random Glucose 150 H Calcium 8.0 L D Total Bilirubin 1.6 H Direct Bilirubin 0.6 H AST 57 H ALT 52 H Alkaline Phosphatase 56 Lactate Dehydrogenase Troponin I High Sens Total Protein 6.9 Albumin 3.9 Triglycerides 54 Cholesterol 175 LDL Cholesterol, Calc 109 HDL Cholesterol 56 Lipase 3444 H Beta HCG, Quant Urine Color Urine Appearance Urine pH Ur Specific [place] Urine Protein Urine Glucose (UA) Urine Ketones Urine Blood Urine Nitrite Ur Leukocyte Esterase Urine RBC Urine WBC Ur Squamous Epith Cells Urine Bacteria Urine Mucus COVID-19 ([facility]) COVID-19 Clin Com Assessment and Plan (1) Pancreatitis: Status: Acute (2) Alcohol dependence: Status: Acute Plan 36F presented with abdominal pain acute alcoholic pancreatitis IVF, pain control, advance diet when tolerated (currently only tolerating small sips of clears) alcohol dependence monitor for withdrawal dvt porphylaxis- lovenox full code reason for continued hospitalization:not tolerating po, needs aggressive ivf Quality Stroke Does the patient have a stroke diagnosis?: No VTE Prior VTE?: No VTE Risk Level:: Medical - moderate - high VTE Device Contraindication: Treatment Not Indicated VTE Drug Contraindication: N/A - Med Ordered
[2022-01-07] MEDS: Lactated Ringers 1,000 ML 150 ML IVCONT ×2 (11:31→20:30)
--- NOTE | 2022-01-07 14:43 | PC.NURSE ---
patient medicated with prn for pain and assisted to bathroom . alert and orientated . given ice chips .
--- NOTE | 2022-01-07 15:14 | PC.NURSE ---
This RN assumed care of patient in overflow unit at this time. Patient comfortable, was just medicated to pain prior to arrival, IVF running without issue. No complaints offered at this time.
[2022-01-08] VITALS (7 sets, daily range): BP systolic 148–170; BP diastolic 90–97; PULSE 60–95; RESP 14–18; TEMP 36.2–37.2; O2SAT 95–97
[2022-01-08] MEDS: Lactated Ringers 1,000 ML 150 ML IVCONT ×4 (02:55→22:40)
[2022-01-08] MEDS: HYDROmorphone HCl 0.5 MG/0.5 ML SYRINGE IVPUSH ×4 (03:01→21:16)
[2022-01-08] MEDS: Enoxaparin Sodium 40 MG/0.4 ML SYRINGE SUBCUT (05:45)
[2022-01-08 06:54] LABS: Hematocrit 40.9 % (37.0-47.0); Hemoglobin 13.9 g/dl (12.0-16.0); Mean Corpuscular Hemoglobin 32.3 pg (27.0-33.0); Mean Corpuscular Volume 94.9 fL (80.0-98.0); Mean Platelet Volume 9.6 fL (9.4-12.3); Platelet Count 151 X10*3/uL (160-400); Red Blood Count 4.31 X10*6/uL (4.20-5.50); Red Cell Distribution Width 12.2 % (11.0-16.0); White Blood Count 15.1 X10*3/uL (4.8-10.8)
[2022-01-08 07:20] LABS: INTERNATIONAL NORM RATIO 1.4 (0.9-1.1); Prothrombin Time 15.6 SEC (9.9-13.0)
[2022-01-08 07:25] LABS: Alanine Aminotransferase 36 U/L (0-31); Albumin Level 3.6 g/dL (3.5-5.0); Alkaline Phosphatase 51 U/L (39-117); Anion Gap 12 (12-20); Aspartate Amino Transferase 34 U/L (5-31); Bilirubin Direct 0.7 mg/dL (0.0-0.5); Bilirubin Total 1.6 mg/dL (0.0-1.0); Blood Urea Nitrogen 4 mg/dL (9-16); Calcium 8.1 mg/dL (8.4-10.2); Carbon Dioxide 28 mmol/L (22-29); Chloride 100 mmol/L (96-108); Creatinine Clr Calc Pharmacy 120.7; Estimated Glomerular Filt Rate > 60; Glucose Fasting 90 mg/dL (60-99); Potassium 3.5 mmol/L (3.3-5.1); Sodium 136 mmol/L (135-145); Total Protein 6.1 g/dL (6.5-8.0)
[2022-01-08] MEDS: Famotidine/PF 20 MG/2 ML VIAL IVPUSH ×2 (09:22→20:20)
[2022-01-08] MEDS: Multivitamin TABLET 1 TAB PO (09:22)
[2022-01-08] MEDS: Thiamine HCL 100 MG TABLET PO (09:22)
[2022-01-08] MEDS: Folic Acid 1 MG TABLET PO (09:22)
--- NOTE | 2022-01-08 10:06 | P.PNIM_ITS ---
Subjective Subjective Date of Service: 01/08/22 Interval History: cc: abd pain interval history:still with severe pain Cardiovascular Cardiovascular: Reports no additional cardiovascular complaints Respiratory Respiratory: Reports no additional respiratory complaints Physical Exam Vital Signs: Vital Signs: Last Vital Signs Temp 98.4 F 01/08/22 08:00 Pulse 86 01/08/22 08:00 Resp 16 01/08/22 08:00 BP 154/90 H 01/08/22 08:00 Pulse Ox 96 01/08/22 08:00 O2 Del Method 01/08/22 08:00 BMI result Body Mass Index 25.8 General: AO X 3, in pain HEENT: facial telangiectasias Resp: CTA bilateral, no accessory muscles used CVS: S1,S2,RRR GI: soft, tender, non distended Neuro: motor grossly intact, alert Psych: appropriate affect, appropriate insight Objective Data Active Medications Enoxaparin Sodium (Enoxaparin Sodium 40 Mg/0.4 Ml Syringe) 40 mg SUBCUT Q24H [facility] Last Admin: 01/08/22 05:45 Dose: 40 mg Documented By: PETE Famotidine (Famotidine/Pf 20 Mg/2 Ml Vial) 20 mg IVPUSH BID [facility] Last Admin: 01/08/22 09:22 Dose: 20 mg Documented By: PHIL Folic Acid (Folic Acid 1 Mg Tablet) 1 mg PO DAILY [facility] Stop: 01/10/22 08:59 Last Admin: 01/08/22 09:22 Dose: 1 mg Documented By: PHIL Hydromorphone HCl (Hydromorphone Hcl 0.5 Mg/0.5 Ml Syringe) 0.5 mg IVPUSH Q4H PRN; Protocol PRN Reason: Pain, Severe (Pain Scale 7-10) Last Admin: 01/08/22 09:23 Dose: 0.5 mg Documented By: PHIL Lactated Ringer's (Lr) 1,000 mls @ 150 mls/hr IVCONT .Q6H40M [facility] Last Admin: 01/08/22 09:21 Dose: 150 mls/hr Documented By: PHIL Lorazepam (Lorazepam 1 Mg Tablet) 1 mg PO Q4H PRN PRN Reason: Breakthrough alcohol withdrawa Stop: 01/11/22 04:25 Melatonin (Melatonin 3 Mg Tablet) 6 mg PO BEDTIME PRN PRN Reason: Insomnia Multivitamins/Vitamin C (Multivitamin Tablet) 1 tab PO DAILY [facility] Stop: 01/10/22 08:59 Last Admin: 01/08/22 09:22 Dose: 1 tab Documented By: PHIL Senna (Sennosides 8.6 Mg Tablet) 17.2 mg PO BEDTIME PRN PRN Reason: Constipation Sodium Chloride (0.9 % Sodium Chloride Flush 3 Ml Syringe) 3 ml IVFLUSH QSHIFT [facility] Last Admin: 01/08/22 09:22 Dose: Not Given Documented By: PHIL Non-Admin Reason: IV Running Thiamine HCl (Thiamine Hcl 100 Mg Tablet) 100 mg PO DAILY [facility] Stop: 01/10/22 08:59 Last Admin: 01/08/22 09:22 Dose: 100 mg Documented By: PHIL Labs CBC & Chem 7: 01/08/22 06:23 01/08/22 06:23 Labs: Laboratory Results - last 24 hr 01/06/22 01/06/22 01/08/22 21:50 21:50 06:23 MCV 94.9 MCH 32.3 MCHC 34.0 RDW 12.2 Plt Count 151 L MPV 9.6 Absolute Nucleated RBC 0.000 Nucleated RBC % (auto) 0.0 Smear Tech's Comments VERIFIED PT INR Anion Gap Estim Creat Clear Calc Estimated GFR Fasting Glucose Calcium Total Bilirubin Direct Bilirubin AST ALT Alkaline Phosphatase Lactate Dehydrogenase 212 Total Protein Albumin Lipase 5088 H Beta HCG, Quant < 2 01/08/22 01/08/22 06:23 06:23 MCV MCH MCHC RDW Plt Count MPV Absolute Nucleated RBC Nucleated RBC % (auto) Smear Tech's Comments PT 15.6 H INR 1.4 H Anion Gap 12 Estim Creat Clear Calc 120.7 Estimated GFR > 60 Fasting Glucose 90 Calcium 8.1 L Total Bilirubin 1.6 H Direct Bilirubin 0.7 H AST 34 H D ALT 36 H Alkaline Phosphatase 51 Lactate Dehydrogenase Total Protein 6.1 L Albumin 3.6 Lipase Beta HCG, Quant Assessment and Plan (1) Pancreatitis: Status: Acute (2) Alcohol dependence: Status: Acute Plan 36F presented with abdominal pain acute alcoholic pancreatitis IVF, pain control, advance diet when tolerated (currently only tolerating small sips of clears) alcohol dependence with mild withdrawal monitor ciwa alcohol hepaticsteatosis etoh abstinance recommended dvt porphylaxis- lovenox full code reason for continued hospitalization:not tolerating po, needs aggressive ivf Quality Stroke Does the patient have a stroke diagnosis?: No VTE Prior VTE?: No VTE Risk Level:: Medical - moderate - high VTE Device Contraindication: Treatment Not Indicated VTE Drug Contraindication: N/A - Med Ordered
--- NOTE | 2022-01-08 11:04 | PM.PNGS ---
Subjective Subjective Date of Service: 01/08/22 Interval history: Patient now resting comfortably, sleepy Physical Exam Vital Signs: Vital Signs: Last Vital Signs Temp 98.4 F 01/08/22 08:00 Pulse 86 01/08/22 08:00 Resp 16 01/08/22 08:00 BP 154/90 H 01/08/22 08:00 Pulse Ox 96 01/08/22 08:00 O2 Del Method 01/08/22 08:00 BMI result Body Mass Index 25.8 Const: General: well developed Nutritional Appearance: well nourished Orientation/consciousness: patient oriented x3 Limitations: no limitations Resp: Effort & Inspection: normal respiratory effort Skin: Other: Warm and dry Neuro: General: patient oriented x3 Objective Data Active Medications Enoxaparin Sodium (Enoxaparin Sodium 40 Mg/0.4 Ml Syringe) 40 mg SUBCUT Q24H [facility] Last Admin: 01/08/22 05:45 Dose: 40 mg Documented By: PETE Famotidine (Famotidine/Pf 20 Mg/2 Ml Vial) 20 mg IVPUSH BID [facility] Last Admin: 01/08/22 09:22 Dose: 20 mg Documented By: PHIL Folic Acid (Folic Acid 1 Mg Tablet) 1 mg PO DAILY [facility] Stop: 01/10/22 08:59 Last Admin: 01/08/22 09:22 Dose: 1 mg Documented By: PHIL Hydromorphone HCl (Hydromorphone Hcl 0.5 Mg/0.5 Ml Syringe) 0.5 mg IVPUSH Q4H PRN; Protocol PRN Reason: Pain, Severe (Pain Scale 7-10) Last Admin: 01/08/22 09:23 Dose: 0.5 mg Documented By: PHIL Lactated Ringer's (Lr) 1,000 mls @ 150 mls/hr IVCONT .Q6H40M [facility] Last Admin: 01/08/22 09:21 Dose: 150 mls/hr Documented By: PHIL Lorazepam (Lorazepam 1 Mg Tablet) 1 mg PO Q4H PRN PRN Reason: Breakthrough alcohol withdrawa Stop: 01/11/22 04:25 Melatonin (Melatonin 3 Mg Tablet) 6 mg PO BEDTIME PRN PRN Reason: Insomnia Multivitamins/Vitamin C (Multivitamin Tablet) 1 tab PO DAILY [facility] Stop: 01/10/22 08:59 Last Admin: 01/08/22 09:22 Dose: 1 tab Documented By: PHIL Senna (Sennosides 8.6 Mg Tablet) 17.2 mg PO BEDTIME PRN PRN Reason: Constipation Sodium Chloride (0.9 % Sodium Chloride Flush 3 Ml Syringe) 3 ml IVFLUSH QSHIFT [facility] Last Admin: 01/08/22 09:22 Dose: Not Given Documented By: PHIL Non-Admin Reason: IV Running Thiamine HCl (Thiamine Hcl 100 Mg Tablet) 100 mg PO DAILY [facility] Stop: 01/10/22 08:59 Last Admin: 01/08/22 09:22 Dose: 100 mg Documented By: PHIL Labs CBC & Chem 7: 01/08/22 06:23 01/08/22 06:23 Labs: Laboratory Results - last 24 hr 01/06/22 01/06/22 01/08/22 21:50 21:50 06:23 MCV 94.9 MCH 32.3 MCHC 34.0 RDW 12.2 Plt Count 151 L MPV 9.6 Absolute Nucleated RBC 0.000 Nucleated RBC % (auto) 0.0 Smear Tech's Comments VERIFIED PT INR Anion Gap Estim Creat Clear Calc Estimated GFR Fasting Glucose Calcium Total Bilirubin Direct Bilirubin AST ALT Alkaline Phosphatase Lactate Dehydrogenase 212 Total Protein Albumin Lipase 5088 H Beta HCG, Quant < 2 01/08/22 01/08/22 06:23 06:23 MCV MCH MCHC RDW Plt Count MPV Absolute Nucleated RBC Nucleated RBC % (auto) Smear Tech's Comments PT 15.6 H INR 1.4 H Anion Gap 12 Estim Creat Clear Calc 120.7 Estimated GFR > 60 Fasting Glucose 90 Calcium 8.1 L Total Bilirubin 1.6 H Direct Bilirubin 0.7 H AST 34 H D ALT 36 H Alkaline Phosphatase 51 Lactate Dehydrogenase Total Protein 6.1 L Albumin 3.6 Lipase Beta HCG, Quant Procedures Date of Service Date of Service: 01/08/22 Progress Note: A&P Assessment and plan (1) Pancreatitis: Status: Acute Plan Pain control is improved patient is not sleeping. The laboratories remain with elevated WBC and LFTs. Probable alcohol-induced hepatitis. Continue supportive care. Time Spent With Patient Time: Total time spent is greater than 50% in coordination of care (as documented) at patient's floor/unit and/or counseling patient: Quality Stroke Does the patient have a stroke diagnosis?: No VTE Prior VTE?: No VTE Risk Level:: Medical - moderate - high VTE Device Contraindication: Treatment Not Indicated VTE Drug Contraindication: N/A - Med Ordered
--- NOTE | 2022-01-08 16:52 | MHC.RECOVSUP ---
Recovery Support note: Patient is a 36 year old [place] speaking female who presented to [facility] due to abdominal pain. This tag writer met with patient in 372 to discuss alcohol use and recovery supports. Patient reports she typically drinks a bottle of wine a night however her rate of consumption has increased recently as she was on vacation. Patient she plans to never drink again, stating she saw her dad go through something similar due to drinking and she does not want to end up that way. In addition, patient reports the pain she experienced was worse than anything she has ever been through and that she never wants to have to deal with that again. Patient does not anticipate any barriers to her sobriety. Patient reports she is in the and lives [place] [facility]. Discussed recovery supports available to patient. Patient reports she has a couple friends who stopped drinking and now go to AA and that she may try attending meetings with them. In addition, [place]. Patient reports overall she feels well supported. Discussed the negative impact alcohol use will have on her health if she starts drinking again and patient reiterates that she has already decided she will never drink again. Recovery Support Team available as needed.
[2022-01-09] VITALS (8 sets, daily range): BP systolic 149–159; BP diastolic 63–99; PULSE 72–88; RESP 16–20; TEMP 36.6–37.5; O2SAT 93–98
[2022-01-09] MEDS: HYDROmorphone HCl 0.5 MG/0.5 ML SYRINGE IVPUSH ×5 (01:20→23:38)
[2022-01-09] MEDS: Lactated Ringers 1,000 ML 150 ML IVCONT ×3 (04:44→23:39)
[2022-01-09] MEDS: Enoxaparin Sodium 40 MG/0.4 ML SYRINGE SUBCUT (05:37)
[2022-01-09 06:28] LABS: Hematocrit 41.1 % (37.0-47.0); Hemoglobin 13.9 g/dl (12.0-16.0); Mean Corpuscular HGB Conc 33.8 g/dl (31.0-35.0); Mean Corpuscular Hemoglobin 31.9 pg (27.0-33.0); Mean Corpuscular Volume 94.3 fL (80.0-98.0); Mean Platelet Volume 9.4 fL (9.4-12.3); Platelet Count 159 X10*3/uL (160-400); Red Blood Count 4.36 X10*6/uL (4.20-5.50); Red Cell Distribution Width 12.1 % (11.0-16.0); White Blood Count 16.3 X10*3/uL (4.8-10.8)
[2022-01-09 06:47] LABS: Alanine Aminotransferase 26 U/L (0-31); Albumin Level 3.6 g/dL (3.5-5.0); Alkaline Phosphatase 51 U/L (39-117); Anion Gap 13 (12-20); Aspartate Amino Transferase 26 U/L (5-31); Bilirubin Direct 0.8 mg/dL (0.0-0.5); Blood Urea Nitrogen 6 mg/dL (9-16); Calcium 8.4 mg/dL (8.4-10.2); Carbon Dioxide 24 mmol/L (22-29); Chloride 101 mmol/L (96-108); Creatinine Clr Calc Pharmacy 126.5; Estimated Glomerular Filt Rate > 60; Glucose Fasting 81 mg/dL (60-99); Lipase 475 U/L (8-78); Magnesium 3.3 mg/dL (1.6-2.6); Potassium 3.5 mmol/L (3.3-5.1); Sodium 134 mmol/L (135-145); Total Protein 6.4 g/dL (6.5-8.0)
[2022-01-09] MEDS: Famotidine/PF 20 MG/2 ML VIAL IVPUSH ×2 (09:04→21:05)
[2022-01-09] MEDS: Folic Acid 1 MG TABLET PO (09:05)
[2022-01-09] MEDS: Multivitamin TABLET 1 TAB PO (09:05)
[2022-01-09] MEDS: Thiamine HCL 100 MG TABLET PO (09:05)
[2022-01-09] MEDS: 0.9 % Sodium Chloride Flush 3 ML SYRINGE IVFLUSH ×2 (09:06→17:19)
--- NOTE | 2022-01-09 09:29 | HO.PM.IMPN ---
Subjective Subjective Date of Service: 01/09/22 Interval History: cc: abd pain interval history:about the same Cardiovascular Cardiovascular: Reports no additional cardiovascular complaints Respiratory Respiratory: Reports no additional respiratory complaints Physical Exam Vital Signs: Vital Signs: Last Vital Signs Temp 98.2 F 01/09/22 08:00 Pulse 88 01/09/22 08:00 Resp 16 01/09/22 08:00 BP 152/99 H 01/09/22 08:00 Pulse Ox 95 01/09/22 08:00 O2 Del Method 01/09/22 08:00 BMI result Body Mass Index 25.8 General: AO X 3, in pain HEENT: facial telangiectasias Resp: CTA bilateral, no accessory muscles used CVS: S1,S2,RRR GI: soft, tender, non distended Neuro: motor grossly intact, alert Psych: appropriate affect, appropriate insight Objective Data Active Medications Enoxaparin Sodium (Enoxaparin Sodium 40 Mg/0.4 Ml Syringe) 40 mg SUBCUT Q24H [facility] Last Admin: 01/09/22 05:37 Dose: 40 mg Documented By: HARPER Famotidine (Famotidine/Pf 20 Mg/2 Ml Vial) 20 mg IVPUSH BID [facility] Last Admin: 01/09/22 09:04 Dose: 20 mg Documented By: QUIRINO Folic Acid (Folic Acid 1 Mg Tablet) 1 mg PO DAILY [facility] Stop: 01/10/22 08:59 Last Admin: 01/09/22 09:05 Dose: 1 mg Documented By: QUIRINO Hydromorphone HCl (Hydromorphone Hcl 0.5 Mg/0.5 Ml Syringe) 0.5 mg IVPUSH Q4H PRN; Protocol PRN Reason: Pain, Severe (Pain Scale 7-10) Last Admin: 01/09/22 09:05 Dose: 0.5 mg Documented By: QUIRINO Lactated Ringer's (Lr) 1,000 mls @ 150 mls/hr IVCONT .Q6H40M [facility] Last Admin: 01/09/22 04:44 Dose: 150 mls/hr Documented By: HARPER Lorazepam (Lorazepam 1 Mg Tablet) 1 mg PO Q4H PRN PRN Reason: Breakthrough alcohol withdrawa Stop: 01/11/22 04:25 Melatonin (Melatonin 3 Mg Tablet) 6 mg PO BEDTIME PRN PRN Reason: Insomnia Multivitamins/Vitamin C (Multivitamin Tablet) 1 tab PO DAILY [facility] Stop: 01/10/22 08:59 Last Admin: 01/09/22 09:05 Dose: 1 tab Documented By: QUIRINO Senna (Sennosides 8.6 Mg Tablet) 17.2 mg PO BEDTIME PRN PRN Reason: Constipation Sodium Chloride (0.9 % Sodium Chloride Flush 3 Ml Syringe) 3 ml IVFLUSH QSHIFT [facility] Last Admin: 01/09/22 09:06 Dose: 3 ml Documented By: QUIRINO Thiamine HCl (Thiamine Hcl 100 Mg Tablet) 100 mg PO DAILY [facility] Stop: 01/10/22 08:59 Last Admin: 01/09/22 09:05 Dose: 100 mg Documented By: QUIRINO Labs CBC & Chem 7: 01/09/22 05:53 01/09/22 05:53 Labs: Laboratory Results - last 24 hr 01/09/22 01/09/22 05:53 05:53 MCV 94.3 MCH 31.9 MCHC 33.8 RDW 12.1 Plt Count 159 L MPV 9.4 Absolute Nucleated RBC 0.000 Nucleated RBC % (auto) 0.0 Anion Gap 13 Estim Creat Clear Calc 126.5 Estimated GFR > 60 Fasting Glucose 81 Calcium 8.4 Magnesium 3.3 H Total Bilirubin 2.0 H Direct Bilirubin 0.8 H AST 26 ALT 26 Alkaline Phosphatase 51 Total Protein 6.4 L Albumin 3.6 Lipase 475 H Assessment and Plan (1) Pancreatitis: Status: Acute (2) Alcohol dependence: Status: Acute Plan 36F presented with abdominal pain acute alcoholic pancreatitis IVF, pain control, advance diet when tolerated (currently only tolerating small sips of clears) alcohol dependence with mild withdrawal monitor ciwa, scoring low, will hold off on phenobarb for now alcohol hepaticsteatosis with component of acute alcoholilc hepatitis etoh abstinance recommended, monitor labs dvt porphylaxis- lovenox full code reason for continued hospitalization:not tolerating po, needs aggressive ivf Quality Stroke Does the patient have a stroke diagnosis?: No VTE Prior VTE?: No VTE Risk Level:: Medical - moderate - high VTE Device Contraindication: Treatment Not Indicated VTE Drug Contraindication: N/A - Med Ordered
[2022-01-09] MEDS: Sennosides 8.6 MG TABLET 17.2 MG PO (21:05)
[2022-01-09] MEDS: Melatonin 3 MG TABLET 6 MG PO (21:05)
[2022-01-10 03:35] VITALS: BP 165/95; PULSE 87; RESP 18; TEMP 37.6; O2SAT 96
[2022-01-10] MEDS: HYDROmorphone HCl 0.5 MG/0.5 ML SYRINGE IVPUSH (04:14)
[2022-01-10] MEDS: Enoxaparin Sodium 40 MG/0.4 ML SYRINGE SUBCUT (05:52)
[2022-01-10] MEDS: Lactated Ringers 1,000 ML 150 ML IVCONT (06:22)
[2022-01-10 06:26] LABS: Hematocrit 37.5 % (37.0-47.0); Hemoglobin 12.9 g/dl (12.0-16.0); Mean Corpuscular HGB Conc 34.4 g/dl (31.0-35.0); Mean Corpuscular Hemoglobin 32.7 pg (27.0-33.0); Mean Corpuscular Volume 94.9 fL (80.0-98.0); Mean Platelet Volume 9.3 fL (9.4-12.3); Platelet Count 186 X10*3/uL (160-400); Red Blood Count 3.95 X10*6/uL (4.20-5.50); Red Cell Distribution Width 11.9 % (11.0-16.0); White Blood Count 12.9 X10*3/uL (4.8-10.8)
[2022-01-10 06:57] LABS: INTERNATIONAL NORM RATIO 1.4 (0.9-1.1); Prothrombin Time 15.6 SEC (9.9-13.0)
[2022-01-10 06:59] LABS: Alanine Aminotransferase 24 U/L (0-31); Albumin Level 3.4 g/dL (3.5-5.0); Alkaline Phosphatase 56 U/L (39-117); Anion Gap 13 (12-20); Aspartate Amino Transferase 27 U/L (5-31); Bilirubin Direct 0.9 mg/dL (0.0-0.5); Bilirubin Total 1.9 mg/dL (0.0-1.0); Blood Urea Nitrogen 6 mg/dL (9-16); Calcium 8.5 mg/dL (8.4-10.2); Carbon Dioxide 27 mmol/L (22-29); Chloride 99 mmol/L (96-108); Creatinine Clr Calc Pharmacy 130.6; Estimated Glomerular Filt Rate > 60; Glucose Fasting 90 mg/dL (60-99); Potassium 3.6 mmol/L (3.3-5.1); Sodium 135 mmol/L (135-145); Total Protein 6.1 g/dL (6.5-8.0)
[2022-01-10] MEDS: Famotidine/PF 20 MG/2 ML VIAL IVPUSH (07:17)
[2022-01-10 08:00] VITALS: BP 156/92; PULSE 91; RESP 17; TEMP 37.2; O2SAT 96
--- NOTE | 2022-01-10 13:32 | PM.DS ---
DS: Providers Provider Date of Service: 01/10/22 Date of admission: 01/07/22 04:26 Primary care physician: Unknown Physician Consults: 01/07/22 04:26 Consult to Gastroenterology Routine Consulting Provider: Nadia Neal Reason for consultation: Pancreatitis 01/07/22 04:33 Consult to General Surgery Routine Consulting Provider: Bernard Sarah Reason for consultation: Pancreatitis with peripancreatic fluid collection 01/07/22 08:42 Consult to Care Team Routine Comment: Reason for consultation: Recovery team to meet due to ETOH Has provider been notified: Yes DS: Diagnosis Discharge Diagnosis (1) Pancreatitis: Status: Acute (2) Alcohol dependence: Status: Acute DS: Summary Hospital Course Hospital Course: from intiial hpi: Chief Complaint: Abdominal pain 36-year-old female with a past medical history of GERD, alcohol abuse presented to the hospital with a chief complaint of abdominal pain.? Patient reports that for the past 1 day she has been having abdominal pain associated nausea and vomiting.? Had multiple episodes of projectile vomiting.? Denies any blood in the vomitus.? Patient reports that over the past few days she has been drinking alcohol; mentions that she is drinking of alcohol as she was on vacation.? And usually does not drink much of alcohol.? Denies any other illicit drug use.? Denies any chest pain or palpitations.? Denies any diarrhea.? Reports her abdominal pain is 10/10 in intensity, located in the epigastrium; Review of all other systems is negative except mentioned above ER course: Per ER team patient has diffuse abdominal tenderness; CT scan showed acute interstitial pancreatitis.? Lipase was elevated to 5000; also noted mild transaminitis.? Given pain medications, IV fluids.? Admitted to the hospital for further management. hospital course: patient was admitted for acute alcoholic pancreatitis. She was given IV fluids and pain medication. Her pain slowly improved and she was able to advance to solid diet which she has tolerated. Patient is alcohol dependence and had some mild withdrawal. She did not require any medication for this. Patient has alcoholic hepatic steatosis with component of acute alcoholic hepatitis. alcohol abstinence is recommended. Patient is feeling better will be discharged home. Time Spent with Patient Time attestation: Total time spent providing and/or coordinating discharge services: Discharge coordination time: Greater than 30 minutes Quality: Safe Use of Opioids Does Pt have an Active Cancer Diagnosis on the Problem List?: No Quality: Stroke Does the patient have a stroke diagnosis?: No Physical Exam Vital Signs: Vital Signs: Last Vital Signs Temp 98.9 F 01/10/22 08:00 Pulse 91 01/10/22 08:00 Resp 17 01/10/22 08:00 BP 156/92 H 01/10/22 08:00 Pulse Ox 96 01/10/22 08:00 O2 Del Method 01/10/22 08:00 BMI result Body Mass Index 25.8 General: AO X 3, no acute distress Resp: CTA bilateral, no accessory muscles used CVS: S1,S2,RRR GI: soft, non tender, non distended Neuro: motor grossly intact, alert Psych: appropriate affect, appropriate insight DS: Data Data Completed and Pending Labs on day of discharge: Laboratory Results - last 24 hr 01/10/22 01/10/22 01/10/22 06:06 06:06 06:06 WBC 12.9 H RBC 3.95 L Hgb 12.9 Hct 37.5 MCV 94.9 MCH 32.7 MCHC 34.4 RDW 11.9 Plt Count 186 MPV 9.3 L Absolute Nucleated RBC 0.000 Nucleated RBC % (auto) 0.0 PT 15.6 H INR 1.4 H Sodium 135 Potassium 3.6 Chloride 99 Carbon Dioxide 27 Anion Gap 13 BUN 6 L Creatinine 0.61 Estim Creat Clear Calc 130.6 Estimated GFR > 60 Fasting Glucose 90 Calcium 8.5 Total Bilirubin 1.9 H Direct Bilirubin 0.9 H AST 27 ALT 24 Alkaline Phosphatase 56 Total Protein 6.1 L Albumin 3.4 L Discharge Plan Discharge Patient Disposition: Home, Self-Care Discharge Diagnosis: etoh pancreatitis Referrals: Physician,Unknown J [Primary Care Provider] - 1 Week Discharge Medications: Continued cetirizine [Zyrtec] 10 mg Tablet 10 mg PO DAILY omeprazole 10 mg Capsule,Delayed Release(Dr/Ec) 10 mg PO DAILY Discharge Orders: Discharge Order (Routine); Ordered 01/10/22 Ordered By: Olu Luong Diet: advance to usual diet Activity on Discharge: As tolerated Stand Alone Forms: Patient Portal Discharge page Care Plan Goals: recovery Health Concerns: etoh Plan of Treatment: avoid etoh Assessment: see above
--- NOTE | 2022-01-10 13:36 | MHC.CM.PN ---
PT MEDICALLY CLEARED FOR D/C HOME SELF-CARE. PT TO ARRANGE TRANSPORT VIA FAMILY
== END 2022-01-10 14:22 | disposition home or self-care (01) | DRG 282 ==
LOC: HO.ED 01-07 01:36 → HO.EDOVER 01-07 04:41 → HO.S3 01-07 16:24
PROVIDERS: Nurse Practitioner Family; Admitting Provider Hospitalist; Emergency Provider Emergency Medicine; Visit Provider Internal Medicine
DX: K85.20 Alcohol induced acute pancreatitis without necrosis or infection (principal); K70.0 Alcoholic fatty liver; F10.239 Alcohol dependence with withdrawal, unspecified; K21.9 Gastro-esophageal reflux disease without esophagitis; Z20.822 Contact with and (suspected) exposure to COVID-19; Z87.891 Personal history of nicotine dependence; Z79.899 Other long term (current) drug therapy
CPT/HCPCS: 36415; 74177; 80048; 80053; 80061; 80076; 81001; 83615; 83690; 83735; 84484; 84702; 85025; 85027; 85610; 87635; 93005; 96361; 96374; 96375; 96376; 99285; J1170; J1650; J2270; J2405; Q9967